=== PATIENT | female | born 1965 | race Caucasian/White ===

== ENCOUNTER 2016-05-26 13:19 | Emergency (ER) | payer OTHER | END 2016-05-26 13:30 | disposition left against medical advice (07) | LOC: UCEAST 13:19 | DX: Z76.0 Encounter for issue of repeat prescription (principal); Z53.21 Procedure and treatment not carried out due to patient leaving prior to being seen by health care provider ==

== ENCOUNTER 2016-10-09 11:32 | Emergency (ER) | payer OTHER ==
[2016-10-09 12:03] VITALS: BP 140/91
--- NOTE | 2016-10-09 12:39 | UC ---
Back Pain HPI - History of Current Complaint Chief Complaint: UCBackPain Stated Complaint: BACK PAIN Time Seen by Provider: 10/09/16 12:28 Hx Obtained From: Patient Hx Last Menstrual Period: post menopausal ?: No Onset/Duration: Gradual Onset - started last kosta with R sided low back pain. progressively worse over past 12 hourss, tried ibuprofen and tylenol with pain relief for 2-3 hours. worse if bends forward, better if stands straight. denies urinary diff or blood in urine Timing: Constant Severity Initially: Mild Severity Currently: Moderate Pain Intensity: 8 Back Pain: Is Discrete @ - R lower back Character: Throbbing, Stiffness Aggravating: Movement, Bending Alleviating: Rest, Position Associated Signs And Symptoms: Negative: Numbness, Tingling, Bladder Incontinence - Risk Factors Cauda Equina Risk Factors: Negative - Allergies/Home Medications Allergies/Adverse Reactions: Allergies Allergy/AdvReac Type Severity Reaction Status Date / Time No Known Allergies Allergy Verified 03/31/16 11:05 PMH/Surg Hx/FS Hx/Imm Hx Previously Healthy: Yes Endocrine History Of: Reports: Thyroid Disease Denies: Diabetes Cardiovascular History Of: Denies: Cardiac Disorders, Hypertension Respiratory History Of: Denies: COPD, Asthma GI/ History Of: Denies: Ulcer Psychological History Of: Denies: Anxiety, Depression - Surgical History Surgical History: Yes Surgery Procedure, Year, and Place: [facility]SE[facility] - Family History Known Family History: Positive: None Family History: no cardio vascular issues in family lineage - Social History Occupation: Employed Full-time - [employer] Lives: With Family Alcohol Use: None Substance Use Type: None Smoking Status (MU): Never Smoked Tobacco Review of Systems Constitutional: Negative Skin: Negative Respiratory: Negative Cardiovascular: Negative Gastrointestinal: Negative Musculoskeletal: Decreased ROM - low back Neurological: Negative Psychological: Negative All Other Systems Reviewed And Are Negative: Yes Physical Exam Triage Information Reviewed: Yes Appearance: Well-Nourished, Pain Distress - rubbing R low back Vital Signs: Initial Vital Signs Temp 97.0 F 10/09/16 11:55 Resp 16 10/09/16 11:55 BP 140/91 10/09/16 11:55 Pulse Ox 100 10/09/16 11:55 Vital Signs Reviewed: Yes Respiratory Exam: Normal Cardiovascular Exam: Normal Abdominal Exam: Normal Abdomen Description: Positive: Nontender, No Organomegaly Musculoskeletal: Positive: Strength Intact, Other: - palpable muscle spasm R lower back, tender with palp Neurological Exam: Normal Psychological Exam: Normal Skin Exam: Normal Re-Evaluation - Re-Evaluation First Eval Change: Improved - pt states she is starting to feel relief from toradol inj Back Pain Course/Dx - Course Course Of Treatment: iStop Reference #: [id number] - Differential Dx/Diagnosis Differential Diagnosis/HQI/PQRI: Herniated Disc, Renal Colic, Strain Provider Diagnoses: low back strain Discharge - Discharge Plan Condition: Improved Disposition: HOME Prescriptions: Carisoprodol TAB* [Soma TAB*] 350 mg PO TID PRN #15 tab MDD 3 PRN Reason: Spasms - Back Ibuprofen TAB* [Motrin TAB* 800 MG] 800 mg PO Q6H PRN #30 tab PRN Reason: Pain - Back Forms: *Work Release Referrals: No Primary Care Phys,NOPCP [Primary Care Provider] - Additional Instructions: apply warm pad to area of back pain use ibuprofen and SOMA as prescribed return if no better in 5 -7 days
[2016-10-09] MEDS ORDERED: Ketorolac INJ* 60 MG/2 ML VIAL IM ONE (12:50)
== END 2016-10-09 13:54 | disposition home or self-care (01) ==
LOC: UCEAST 11:32
DX: S39.012A Strain of muscle, fascia and tendon of lower back, initial encounter (principal); X58.XXXA Exposure to other specified factors, initial encounter
CPT/HCPCS: 96372; 99212; G0463; J1885

== ENCOUNTER 2019-04-27 11:43 | Emergency (ER) | payer OTHER ==
[2019-04-27 12:38] VITALS: BP 129/79
--- NOTE | 2019-04-27 13:14 | UC ---
Ear Complaint HPI - HPI Summary HPI Summary: PATIENT HAS RECENTLY RECOVERED FROM A URI. STATES SHE HAS HAD SENSATION OF HER EARS BEING CLOGGED SINCE THEN. HEARING IS DECREASED. DENIES FEVER, HEADACHE, DRAINAGE FROM THE EARS. - History of Current Complaint Chief Complaint: UCEar Stated Complaint: EARS CLOGGED Time Seen by Provider: 04/27/19 12:26 Hx Obtained From: Patient Hx Last Menstrual Period: post menopausal Onset/Duration: Gradual Onset, Lasting Days, Still Present Severity Initially: Moderate Severity Currently: Moderate Pain Intensity: 6 Pain Scale Used: 0-10 Numeric Aggravating Factors: Nothing Alleviating Factors: Nothing Associated Signs/Symptoms: Positive: Hearing Loss, URI Symptoms - Allergies/Home Medications Allergies/Adverse Reactions: Allergies Allergy/AdvReac Type Severity Reaction Status Date / Time No Known Allergies Allergy Verified 04/27/19 12:34 PMH/Surg Hx/FS Hx/Imm Hx Endocrine History: Hypothyroidism - Surgical History Surgical History: Yes Surgery Procedure, Year, and Place: [facility] - Family History Known Family History: Positive: None Family History: no cardio vascular issues in family lineage - Social History Alcohol Use: None Substance Use Type: None Smoking Status (MU): Never Smoked Tobacco Review of Systems All Other Systems Reviewed And Are Negative: Yes Constitutional: Positive: Negative ENT: Positive: Ear Ache Respiratory: Positive: Negative Cardiovascular: Positive: Negative Gastrointestinal: Positive: Negative Physical Exam Triage Information Reviewed: Yes Appearance: Well-Appearing, No Pain Distress, Well-Nourished Vital Signs: Initial Vital Signs Temp 97.7 F 04/27/19 12:35 Pulse 62 04/27/19 12:35 Resp 16 04/27/19 12:35 BP 129/79 04/27/19 12:35 Pulse Ox 99 04/27/19 12:35 Vital Signs Reviewed: Yes Eyes: Positive: Conjunctiva Clear ENT: Positive: Hearing grossly normal, Pharynx normal, TMs normal Neck: Positive: Supple, Nontender, No Lymphadenopathy Respiratory Exam: Normal Cardiovascular Exam: Normal Abdomen Description: Positive: Soft Musculoskeletal: Positive: No Edema Neurological: Positive: Alert Psychological: Positive: Age Appropriate Behavior Skin: Negative: Rashes Ear Complaint Course/Dx - Course Course Of Treatment: NO EAR INFECTION OR CERUMEN IMPACTION ON PHYSICAL EXAM TODAY. PATIENT HAS RECENTLY RECOVERED FROM AN UPPER RESPIRATORY INFECTION AND LIKELY HAS EUSTACHIAN TUBE DYSFUNCTION. ADVISED OTC DECONGESTANT AND FOLLOW UP WITH ENT IF HER SYMPTOMS ARE NOT IMPROVING. - Differential Dx/Diagnosis Provider Diagnosis: Ear ache Discharge ED - Sign-Out/Discharge Documenting (check all that apply): Patient Departure All imaging exams completed and their final reports reviewed: No Studies - Discharge Plan Condition: Stable Disposition: HOME Patient Education Materials: Earache (ED) Referrals: [facility] [Provider Group] - If Needed Reema Conklin MD [Primary Care Provider] - If Needed Additional Instructions: YOUR PRESENTATION IS CONSISTENT WITH EUSTACHIAN TUBE DYSFUNCTION. TAKE AN OTC DECONGESTANT SUCH SUDAFED TO HELP ALLEVIATE YOUR SYMPTOMS. IF YOU ARE NOT IMPROVING OVER THE NEXT WEEK OR SO FOLLOW-UP WITH AN ENT. EUSTACHIAN TUBE DYSFUNCTION What is the eustachian tube? The eustachian tube is a tube that connects the middle ear (the part of the ear behind the eardrum) to the back of the nose and throat (figure 1). Normally, the eustachian tube helps keep the air pressure inside the middle ear the same as the air pressure outside the middle ear. If there is a problem with the eustachian tube, the air pressure inside the middle ear won't be the same as the air pressure outside of it. This can damage the middle ear and cause ear pain, hearing loss, and other symptoms. "Ear barotrauma" is the medical term for when people have symptoms or damage in the middle ear because of air pressure differences. Most eustachian tube problems are not serious. They usually last only a short time and get better on their own. But eustachian tube problems sometimes lead to serious problems, such as: - A middle ear infection - A torn eardrum - Hearing loss Long-term hearing loss from eustachian tube problems can also lead to language or speech problems in children. What causes eustachian tube problems? Common causes of eustachian tube problems are: - Illnesses or conditions that make the eustachian tubes swollen or inflamed These include colds, allergies, ear infections, or sinus infections. The sinuses are hollow areas in the bones of the face. - Sudden air pressure changes Sudden air pressure changes can happen when people fly in an airplane, scuba dive, or drive in the mountains. - Growths that block the eustachian tube - Being born with an abnormal eustachian tube What are the symptoms of a eustachian tube problem? Common symptoms of a eustachian tube problem include: - Ear pain - Feeling pressure or fullness in the ear - Trouble hearing - Ringing in the ear - Feeling dizzy Should I see a doctor or nurse? See your doctor or nurse if your symptoms are severe, get worse, or if they don't go away after a few days. Will I need tests? Probably not. Your doctor or nurse should be able to tell if you have a eustachian tube problem by learning about your symptoms and doing an exam. If your symptoms are severe or last for a long time, your doctor or nurse might: - Have you see a special kind of doctor called an ear, nose, and throat doctor - Do tests to check your hearing - Do an imaging test Imaging tests can create pictures of the inside of the body. How are eustachian tube problems treated? Treatment depends on what's causing the eustachian tube problem. Depending on your individual situation, your doctor might treat you with one or more of the following: - Nose sprays - Antihistamines These medicines are usually used to treat allergies. They help stop itching, sneezing, and runny nose symptoms. - Decongestants These medicines can help with stuffy nose symptoms. - Surgery Most people do not need surgery for eustachian tube problems. But people might need surgery if their symptoms don't get better with medicines or they have severe or long-term symptoms. Antibiotics are not needed to treat eustachian tube problems. - Billing Disposition and Condition Condition: STABLE Disposition: Home
== END 2019-04-27 13:12 | disposition home or self-care (01) ==
LOC: UCEAST 11:43
DX: H92.09 Otalgia, unspecified ear (principal)
CPT/HCPCS: 99211; G0463